=== PATIENT | female | born 1995 | race Hispanic/Latino ===

== ENCOUNTER 2020-04-21 07:39 | Inpatient (IN) | payer MEDICAID, OTHER, SELFPAY ==
[2020-04-21 08:21] VITALS: BMI 35.6
--- NOTE | 2020-04-21 08:43 | PDOC.FPROB ---
FMR OB H&P: HPI - History of Present Illness Chief Complaint: contractions, bleeding History of Present Illness: Patient is a 25yo 38.6wks by 17.5wk sono complaining of contractions and bleeding. Contractions began around 3am and the bleeding started around 6am. She denies any problems during this other than anemia. Patient had two prior term CSections and required blood transfusions for both. Patient is scheduled for a repeat Csection on 04/26/2020. Primary Care Physician: Blanco PIÑA FMR OB H&P: Current - Care : 3 Para: 1999 Gestational age: 38.6wks Due date: 04/29/2020 Dating Criteria: 17.5wk sono Course/Complications: anemia of - OB Labs Blood type: O RH: positive Antibody Screen: negative HIV: negative RPR: negative HepBsAg: negative Rubella: immune Gonorrhea: negative Chlamydia: negative Pap Smear: needs PP 3 hour GTT: 2hr: 85/110/99 A1c: 4.2 GBS: negative H&H: 11.6/33.8 FMR OB H&P: History - Past Medical History PMH: None - OB History OB History: 2 prior deliveries. 1st due to failure to dilate, 2nd was repeat. 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 Will need performed PP. - Surgical History Sx History: 2 prior LTCS - Social History Social History: Denies alcohol, tobacco, drug use - Family History Family History: DMII FMR OB H&P: Medications - Current Allergies/Adverse Reactions: Allergies Allergy/AdvReac Type Severity Reaction Status Date / Time No Known Allergies Allergy Unverified 04/21/20 08:20 FMR OB H&P: ROS - Review of Systems General: denies: fever/chills Eyes: denies: vision changes ENT: denies: nasal congestion, rhinorrhea, sore throat Cardiovascular: denies: chest pain, palpitation, edema, orthopnea Respiratory: denies: cough, congestion, shortness of breath Gastrointestinal: denies: abdominal pain, nausea, vomiting Genitourinary (Female): reports: vaginal bleeding, contractions. denies: dysur ia, vaginal discharge Musculoskeletal: denies: pain, tenderness, swelling Neurologic: denies: numbness, headache Integumentary: denies: rash Endocrine: denies: polyuria FMR OB H&P: Vital Signs - Maternal Vital signs: BP 133/68, HR 71 - Heart Tones Baseline: 130 Variability: moderate Acceleration: present Deceleration: absent Category: category 1 [place] contractions every: 2-3 min FMR OB H&P: Physical Exam - Physical Exam General: NAD HEENT: normocephalic and atraumatic, grossly normal vision, grossly normal hearing Neck: FROM Heart: RRR, no murmurs/rubs/gallops General: CTAB, no respiratory distress Abdomen: soft, gravid, non-tender Musculoskeletal: FROM in all four extremities Neurological: no focal deficit Skin: no rash Lymphatic: no unusual bruising or bleeding Psychiatric: intact recent and remote memory, good judgement and insight, normal mood and affect - Pelvic Exam Vulva: appropriate melyssa stage, no lesions Deviation from normal: blood on glove following exam SVE: 275/-2 Membranes: intact FMR OB H&P: A/P Discussion: Date/Time: 04/21/20 0841 25yo 38.6wks by 17.5wk sono complaining of contractions and bleeding sIUP -Contractions since 0300, bleeding (patient describes as light like the first day of her period) since 0600 -SVE 275/-2, contractions 2-3 min, cat 1 tracing -scheduled for rLTC on 04/26/2020 -has not yet been COVID screened Hx of anemia in -H/H on 04/17: 11.6/33.8 -Taking PNV and iron supplementation -Required blood transfusions following both prior deliveries Hx of Obesity in -Aware -A1c 4.2 Previous child has VSD - ECHO negative this No record of recent pap smear -Patient reports had it last year, records were never obtained -Will need PP Will proceed with rLTCS this AM. This H&P was discussed with Dr. Leon who agree with the above documentation and plan. Addendum - Attending - Attending Attestation Date/Time: 04/21/20 1051 I personally evaluated the patient and discussed the management with Dr. Lundberg. I agree with the History, Examination, Assessment and Plan documented above with any addition or exceptions noted below. patient presented rosio this morning with bloody discharge. Schedule for rLTCS later this week. Given term, contractions, and prior c/s x2 will proceed with rLTCS this morning. R/B/A/I discussed with patient who expressed understanding. Cephalic presentation of bedside US.
[2020-04-21] MEDS ORDERED: hydrALAZINE 20 MG/ML VIAL SLOW IVP PRN ×3 (09:17→14:56)
[2020-04-21] MEDS ORDERED: Bicitra 30 ML UDCUP PO PRN (09:17)
[2020-04-21] MEDS ORDERED: Ondansetron PF 4 MG/2 ML Vial IVP PRN ×3 (09:17→14:56)
[2020-04-21] MEDS ORDERED: Promethazine HCl 25 MG/ML VIAL IM PRN ×2 (09:17→12:56)
[2020-04-21] MEDS ORDERED: Famotidine/PF 20 mg/2ml Vial SLOW IVP PRN (09:17)
[2020-04-21] MEDS ORDERED: Methylergonovine 0.2 MG TAB PO PRN (09:24)
[2020-04-21] MEDS ORDERED: Misoprostol 200 MCG TAB PR PRN ×2 (09:24→14:56)
[2020-04-21] MEDS ORDERED: Adacel (T-DAP) 0.5 ML SYRINGE IM ONE (09:24)
[2020-04-21] MEDS ORDERED: Simethicone Chewable 80 MG TAB PO PRN ×2 (09:24→14:56)
[2020-04-21] MEDS ORDERED: Methylergonovine 0.2 MG/ML VIAL IM PRN ×2 (09:24→14:56)
[2020-04-21] MEDS ORDERED: Acetaminophen 325 MG TAB PO PRN ×2 (09:24→14:56)
[2020-04-21] MEDS ORDERED: Lanolin Ointment 7 GM TUBE TOP PRN ×2 (09:24→14:56)
[2020-04-21] MEDS ORDERED: HYDROcodone/Acetaminophen 5/325 mg Tablet PO PRN ×2 (09:24)
[2020-04-21] MEDS ORDERED: Lactated Ringer's 1,000 ML IV SCH (09:30)
[2020-04-21] MEDS ORDERED: CEFAZOLIN 2 GM in Premix Bag 1 BAG IVPB SCH (09:30)
[2020-04-21] MEDS ORDERED: Azithromycin 500 MG in Sodium Chloride 0.9% 250 ML 250 ML IVPB SCH (09:30)
[2020-04-21 09:42] LABS: Hemoglobin 12.3 g/dL (12.0-16.0); Mean Corpuscular HGB CONC 34.6 g/dL (32.0-36.0); Mean Corpuscular Hemoglobin 28.3 pg (27.0-31.0); Mean Corpuscular Volume 81.7 fL (78.0-98.0); Platelet Count 275 thou/uL (130-400); RBC Distribution Width 17.4 % (11.5-14.5); Red Blood Cell (RBC) Count 4.34 mill/uL (4.20-5.40); White Blood Cell (WBC) Count 9.7 thou/uL (4.8-10.8)
[2020-04-21] MEDS ORDERED: Morphine PF 10 MG/10 ML VIAL ONE (10:16)
[2020-04-21] MEDS ORDERED: Ondansetron PF 4 MG/2 ML Vial ONE (10:17)
[2020-04-21] MEDS ORDERED: Dexamethasone 4 mg/ml Vial ONE (10:17)
[2020-04-21] MEDS ORDERED: Ketorolac Tromethamine 30 MG/ML VIAL ONE (10:17)
[2020-04-21] MEDS ORDERED: PHENYLEPHRINE-NS 100 MCG/ML 10 ML SYRINGE ONE (10:17)
[2020-04-21] MEDS ORDERED: Oxytocin 10 UNITS/ML VIAL ONE (10:17)
[2020-04-21 10:20] LABS: HBSAg Index 0.16 S/CO (0-0.99); Hep B Surf Ag Non-Reactive S/CO (NonReactive); Syphilis Antibody Nonreactive (Nonreactive); Syphilis Antibody Index 0.26 S/CO (<1.00 Non-Reactive)
[2020-04-21] MEDS ORDERED: Butorphanol Tartrate 1 MG/ML VIAL ONE (11:19)
[2020-04-21 11:30] LABS: SARS-CoV-2 NAA Rapid Test Not Detected (NotDetected)
[2020-04-21] MEDS ORDERED: Fentanyl 4 mcg/Bup 0.1% Cadd 0 ML ONE (12:16)
[2020-04-21] MEDS ORDERED: Fentanyl 100 MCG/2 ML VIAL ONE (12:18)
--- NOTE | 2020-04-21 12:38 | PDOC.OPDEL ---
OB Operative/Delivery Note Delivery Dr/Surgeon: Bill Jansen Assist: Mitch Lundberg, PGY1, Dr. Leon Attending Pre-Delivery Diagnosis: active labor Procedure/Post Delivery Dx: repeat low transverse CS Weeks gestation: 38 Anesthesia: spinal - Additional Findings/Plan Placenta delivered: spontaneous findings: low transverse hysterotomy with extension (minimal left sided extension ~2 cm) Compilations/Other Findings: see dictated operative report for full details. ATTENDING ADDENDUM: I was present and supervised the entire case. Post delivery plan: routine recovery
[2020-04-21] MEDS ORDERED: L&D-Morphine 4 MG/ML VIAL SLOW IVP PRN (12:55)
[2020-04-21] MEDS ORDERED: Meperidine HCl/PF 25 MG/ML VIAL SLOW IVP PRN (12:55)
[2020-04-21] MEDS ORDERED: Ondansetron HCl/PF 4 MG/2 ML Vial IVP PRN (12:55)
[2020-04-21] MEDS ORDERED: HYDROmorphone 2 MG/ML VIAL SLOW IVP PRN (12:55)
[2020-04-21] MEDS ORDERED: diphenhydrAMINE 50 MG/ML VIAL IVP PRN (12:56)
[2020-04-21] MEDS ORDERED: Ketorolac Tromethamine 30 MG/ML VIAL IVP PRN (12:56)
[2020-04-21] MEDS ORDERED: Promethazine HCl 25 MG SUPP PR PRN (12:56)
[2020-04-21] MEDS ORDERED: Naloxone HCl 0.4 mg/ml Vial IVP PRN ×2 (12:56)
[2020-04-21] MEDS ORDERED: Naloxone HCl 0.4 mg/ml Vial IV PRN (12:56)
[2020-04-21] MEDS ORDERED: Ketorolac Tromethamine 30 MG/ML VIAL IVP SCH (13:00)
[2020-04-21] MEDS ORDERED: Communication Order-Pharmacy FS SCH (13:00)
[2020-04-21] MEDS ORDERED: Butorphanol Tartrate 1 MG/ML VIAL SLOW IVP SCH (14:15)
[2020-04-21] MEDS ORDERED: NS / Oxytocin 40 units/1000ml 1,000 ML IV SCH (14:56)
[2020-04-21] MEDS ORDERED: diphenhydrAMINE 25 MG CAP PO PRN (14:56)
[2020-04-21] MEDS ORDERED: Bisacodyl 10 MG SUPP PR PRN (14:56)
--- NOTE | 2020-04-21 15:22 | OP ---
DATE OF PROCEDURE: 04/21/2020 RESIDENT SURGEON: Jaclyn Jansen, PGY-2. P[employer]P [employer]ANT SUPERVISOR SURGEON: Mitch Lundberg, PGY 1. ATTENDING: Dr. Leon PROCEDURE PERFORMED: Repeat low-transverse section with vacuum- assisted extraction PREOPERATIVE DIAGNOSES: 1. Term intrauterine in labor. 2. Previous section x2. 3. Anemia of . 4. History of blood transfusions x2 with prior section. POSTOPERATIVE DIAGNOSES: 1. Term intrauterine , delivered. 2. Previous section x2. 3. Anemia of . 4. History of blood transfusions x2 with prior section. ANESTHESIA: Spinal. QUANTITATIVE BLOOD LOSS: 500 mL DRAINS: [place] to gravity draining clear urine. SPECIMENS: Cord gas, cord blood for blood type. FINDINGS: Placenta delivered spontaneously and intact, three-vessel cord, discarded. Viable female born at 1157 hours with Apgars of 8 and 9 at 1 and 5 minutes of life respectively. INDICATIONS FOR PROCEDURE: A 25-year-old female, G3, P1-1-0-2 at 38.6 WGA, presented in active labor. She had a history of prior section x2. PROCEDURE IN DETAIL: After risks, benefits, and alternatives were explained to the patient, she gave informed consent. Preoperative antibiotics included cefazolin 2 g IV and azithromycin 500 mg IV. She was taken to the operating room where spinal anesthesia was initiated. She was placed in a supine position with left tilt. She was prepped and draped in the usual sterile fashion. A Pfannenstiel incision was created using a scalpel and carried down to the level of the fascia, which was sharply nicked. Pan scissors were used to extend the fascial cut bilaterally. Superior and inferior edges of the fascia were elevated with Patrick clamps and sharply and bluntly dissected free. The rectus muscles were divided digitally and retracted manually. The peritoneum was entered bluntly and retracted manually. One large adhesion of the uterus to the abdominal wall was taken down using Bovie cautery. A bladder blade was placed. A bladder flap was created. The bladder blade was removed and the Ej O retractor was placed. A low-transverse uterine incision was made with a scalpel. The uterus was entered bluntly. Hysterotomy was extended manually. Infant was noted to be in straight OP position. Delivery was accomplished using vacuum extraction and fundal pressure. There was terminal meconium noted on delivery. Total vacuum time <30 seconds with no popoffs. A segment of the umbilical cord was clamped and cut where cord gases were obtained. Cord blood was collected. The placenta was delivered spontaneously with cord traction and fundal pressure. The edges of hysterotomy were clamped. The endometrium was curetted with a dry lap x2. The hysterotomy was closed using 1 Monocryl in a running locking fashion. The hysterotomy was noted to be hemostatic. Brendan powder was then placed over hysterotomy and over the overlying rectus muscles. Small bleeders on the rectus muscles were cauterized. The underlying fascia was also checked for bleeders and there were no bleeders. The fascia was closed using 1 PDS in a running nonlocking fashion with the exception of locking first stitch on each corner. The subcutaneous space was irrigated with sterile saline. Bleeders were cauterized. Subcutaneous space was closed using 2-0 plain gut. Skin was closed using 4-0 Monocryl. Dermabond was used over the incision. The patient tolerated the procedure well. All counts were correct. The patient was went to routine recovery. ATTENDING ADDENDUM: I was present for and supervised the entire procedure. I agree with the above documentation. Job ID: [id number] MTDD
--- NOTE | 2020-04-21 16:29 | PDOC.BPN ---
- Brief Progress Note Encounter Date: 04/21/20 Encounter Time: 16:10 4 hr Post op C/S note Patient reports that overall she is doing well. Her pain is well controlled, no dyspnea, and she has not noticed excessive abdominal or vaginal bleeding. Of note, Per RN, mom reported decreased mood/depression which she did not mention in my interview. She appeared happy and excited with appropriate affect. Has not had BM, denies flatus, making urine. Vital signs reviewed, AFVSS, monitor BP-103/66 UOP: 600 mL in ramirez catheter PE: Heart: RRR, no MRG Lungs: CTAB, no wheezing/crackles Abdomen: +BS, appropriately tender-mainly on uterine fundus and near incision site, incision bandaged-CDI, no bleeding and drainage A/P Appropriate sx following C/S today Continue post C/S care Monitor BP and VS Monitor mood, screen for depression QD
[2020-04-21] MEDS ORDERED: Ferrous Sulfate 325 MG TAB PO SCH (17:00)
[2020-04-21] MEDS: Ferrous Sulfate 325 MG TAB PO SCH (19:14)
[2020-04-21] MEDS ORDERED: Docusate Calcium (SURFAK) 240 MG CAP PO SCH (21:00)
[2020-04-21] MEDS: Docusate Calcium (SURFAK) 240 MG CAP PO SCH (21:30)
[2020-04-22] MEDS ORDERED: HYDROcodone/Acetaminophen 5/325 mg Tablet PO PRN ×2 (01:00)
[2020-04-22] MEDS: HYDROcodone/Acetaminophen 5/325 mg Tablet PO PRN ×3 (05:32→20:51)
[2020-04-22 07:03] LABS: Hemoglobin 9.5 g/dL (12.0-16.0); Mean Corpuscular HGB CONC 34.4 g/dL (32.0-36.0); Mean Corpuscular Hemoglobin 28.2 pg (27.0-31.0); Mean Platelet Volume 8.6 fL (7.4-10.4); Platelet Count 205 thou/uL (130-400); RBC Distribution Width 17.4 % (11.5-14.5); Red Blood Cell (RBC) Count 3.35 mill/uL (4.20-5.40); White Blood Cell (WBC) Count 14.3 thou/uL (4.8-10.8)
--- NOTE | 2020-04-22 07:18 | PDOC.PP ---
Post Progress Note Post Day #: 1 Subjective: Patient is doing well this morning. She reports 5-6/10 pain in her lower abdomen where the incision is located. She says she was able to sleep after receiving pain medication so it must have helped. She has not taken note of her amount of bleeding. She had mentioned to nursing yesterday feeling depressed, when questioned today she explains it makes her sad to think about her going back to work and being away from her other children while in the hospital. She explains she is very open with her feelings and will let her doctor know if her mood darkens or worsens. PO intake tolerated: yes Flatus: no Ambulation: yes Vital Signs (12 hours) Temp Pulse Resp BP Pulse Ox 04/22/20 05:25 98.2 F 71 16 101/52 L 04/21/20 23:10 98.0 F 62 16 104/59 L 04/21/20 20:15 97.7 F 56 L 16 107/57 L 98 Weight Weight 72.121 kg - Physical Examination General: NAD Cardiovascular: no m/r/g, RRR Respiratory: clear to auscultation bilaterally, non-labored breathing Abdominal: + bowel sounds, lochia, no distention, appropriately TTP Fundus firm & at: umbilicus Skin: CS incision dry & intact, no rash Neurological: no gross focal deficits Psychiatric: A&Ox3, normal affect Result Diagrams: 04/22/20 06:52 Additional Labs: Post Labs Hep Bs Antigen Non-Reactive S/CO (NonReactive) 04/21/20 09:28 Blood Type O POSITIVE 04/21/20 09:55 - Assessment/Plan 25yo 38.6wks by 17.5wk sono complaining of contractions and bleeding PPD #1 following rLTCS of TAGA F at 11:57 on 04/21/2020 -Pain well controlled on current medications -Lochia minimal -Desires IUD for contraception -Will question daily for post- depression Hx of anemia in -Preop H/H: 12.3/27.5. Postop H/H: 9.5/27.5 -Continue PNV and iron supplementation Hx of Obesity in -Aware -A1c 4.2 Previous child has VSD - ECHO negative this No record of recent pap smear -Patient reports had it last year, records were never obtained -Will need PP - follow up with PCP in clinic Plan: Continue routine care. Consider discharge home tomorrow as patient had a rLTCS.
[2020-04-22] MEDS: Docusate Calcium (SURFAK) 240 MG CAP PO SCH ×2 (08:45→20:51)
[2020-04-22] MEDS: Prenatal Vitamin 1 TAB PO SCH (08:45)
[2020-04-22] MEDS: Ferrous Sulfate 325 MG TAB PO SCH ×2 (08:46→21:34)
[2020-04-22] MEDS ORDERED: Prenatal Vitamin 1 TAB PO SCH (09:00)
[2020-04-22] MEDS: Ibuprofen 800 MG TAB PO SCH ×2 (13:46→20:51)
[2020-04-22] MEDS ORDERED: Ibuprofen 800 MG TAB PO SCH (14:00)
[2020-04-23] MEDS: Ibuprofen 800 MG TAB PO SCH ×2 (05:12→13:42)
--- NOTE | 2020-04-23 06:32 | PDOC.PP ---
Post Progress Note Post Day #: 2 Subjective: Patient is doing well today. She says her pain is well-controlled on current medication. She does report increased swelling in her legs but says she has been up in the chair most of the night because the baby was irritable being under the phototherapy lights and she wanted to check on her. Lochia is minimal and less than her period. PO intake tolerated: yes Ambulation: yes Vital Signs (12 hours) Temp Pulse Resp BP Pulse Ox 04/23/20 00:15 98.2 F 79 18 90/53 L 04/22/20 19:45 98.3 F 71 16 114/55 L 100 Weight Weight 72.121 kg - Physical Examination General: NAD Cardiovascular: no m/r/g, RRR Respiratory: clear to auscultation bilaterally, non-labored breathing Abdominal: + bowel sounds, lochia (minimal < period), no distention, appropriately TTP Fundus firm & at: below umbilicus - midline Skin: CS incision dry & intact (intermittent moisture), no rash Neurological: no gross focal deficits Psychiatric: A&Ox3, normal affect Result Diagrams: 04/22/20 06:52 Additional Labs: Post Labs Hep Bs Antigen Non-Reactive S/CO (NonReactive) 04/21/20 09:28 Blood Type O POSITIVE 04/21/20 09:55 - Assessment/Plan 25yo 38.6wks by 17.5wk sono complaining of contractions and bleeding PPD #2 following rLTCS of LIS Pizarro at 11:57 on 04/21/2020 -Pain well controlled on current medications -Lochia minimal and less than her period -Desires IUD for contraception -Continue to monitor for depression. Screening negative at this time. Hx of anemia in -Preop H/H: 12.3/27.5. Postop H/H: 9.5/27.5 -Continue PNV and iron supplementation Hx of Obesity in -Aware -A1c 4.2 Previous child has VSD - ECHO negative this No record of recent pap smear -Patient reports had it last year, records were never obtained -Will need PP - follow up with PCP in clinic Plan: Continue routine care. Plan to discharge home today pending patient's baby's care.
[2020-04-23] MEDS: Prenatal Vitamin 1 TAB PO SCH (08:07)
[2020-04-23] MEDS: HYDROcodone/Acetaminophen 5/325 mg Tablet PO PRN (08:07)
[2020-04-23] MEDS: Ferrous Sulfate 325 MG TAB PO SCH (08:07)
[2020-04-23] MEDS: Docusate Calcium (SURFAK) 240 MG CAP PO SCH (08:07)
[2020-04-23 12:06] VITALS: BP 105/67; TEMP 98.6
--- NOTE | 2020-04-24 07:18 | PQF ---
CLINICAL DOCUMENTATION CLARIFICATION FORM: Dear : Chuckie Leon Date / Time: 04/24/20 9582 Please exercise your independent, professional judgment in responding to the clarification form. Clinical indicators are provided on the bottom of this form for your review Please check appropriate box(es): [ ] Acute blood loss anemia [ X ] Post-op anemia related to acute blood loss [ ] Chronic Anemia related to [ ] Other diagnosis, please specify [ ] Unable to determine Physician Signature: Date/Time: For continuity of documentation, please document condition throughout progress notes and discharge summary. Thank You. To be completed by CDI/Coding staff for physician review: Present Clinical Indicators - Signs / Symptoms / Labs Results and Location in Medical Record [x] RBC 4.34, Hgb 12.3, Hct 35.5 Laboratory 04/21 [x] RBC 3.35, Hgb 9.5, Hct 27.5 Laboratory 04/22 [x] BP 103/63, Pulse 80, Resp 18, Temp 98.1 Vital signs 04/21 [x] Anemia of Operative report 04/21 Dr Jansen [x] Quantitative blood loss: 500 ml Operative report 04/21 Dr Jansen [x] Hx of blood transfusion x2 with prior CS Operative report 04/21 Dr Jansen Present Risk Factors Results and Location in Medical Record [x] Term IUP Operative report 04/21 Dr Jansen [x] s/p Repeat CS Operative report 04/21 Dr Jansen Present Treatments Results and Location in Medical Record [x] IVF NS 1L MAR 04/21 [x] Ferrous Sulfate 325 mg MAR 04/21 [x] Series of Hgb and Hct Laboratory 04/21 CDS/Ship Scraper Signature: Jordana Rojas Phone #: [phone] Date/Time: 04/24/20 3228 This is a permanent part of the Medical Record [facility]
== END 2020-04-23 17:41 | disposition home or self-care (01) | DRG 787 ==
LOC: L&D/OP 07:39 → L&D 09:36 → 3SW 15:48
PROVIDERS: ADMIT Family Medicine; ATTEND Family Medicine
PROC: 10D00Z1 Extraction of Products of Conception, Low, Open Approach (ICD-10-PCS; principal; 2020-04-21)
DX: O34.211 Maternal care for low transverse scar from previous cesarean delivery (principal); D62 Acute posthemorrhagic anemia; Z3A.38 38 weeks gestation of pregnancy; Z37.0 Single live birth; Z20.822 Contact with and (suspected) exposure to COVID-19; O99.02 Anemia complicating childbirth; O99.214 Obesity complicating childbirth; E66.9 Obesity, unspecified; Z83.3 Family history of diabetes mellitus
CPT/HCPCS: 36415; 51702; 85027; 86780; 86850; 86870; 86900; 86901; 86922; 87340; 99285; J0456; J0595; J0690; J1100; J1885; J2270; J2405; J3010; J7050; U0002